=== PATIENT | male | born 1955 | race Caucasian/White ===

== ENCOUNTER 2020-01-16 06:20 | Day surgery (SDC) | payer OTHER ==
[2020-01-16] MEDS ORDERED: NA CHLORIDE 0.9% 1,000 ML ONE (06:56)
[2020-01-16] MEDS ORDERED: PHENYLEPHRINE 2.5% OPTH 2 ML ONE (07:00)
[2020-01-16] MEDS ORDERED: KETOROLAC OPTHALMIC 5 ML BOT ONE (07:00)
[2020-01-16] MEDS ORDERED: CYCLOPENTOLATE 2% OPTH 2 ML ONE (07:00)
[2020-01-16] MEDS ORDERED: TROPICAMIDE 1% OPTH 3 ML BOT ONE (07:00)
[2020-01-16] MEDS ORDERED: MOXIFLOXACIN HCL 0.5% 3ML OPTH OPTH ONE (07:01)
[2020-01-16] MEDS ORDERED: PHENYLEPHRINE 2.5% OPTH 2 ML OPTH ONE (07:07)
[2020-01-16] MEDS ORDERED: CYCLOPENTOLATE 2% OPTH 2 ML OPTH ONE (07:07)
[2020-01-16] MEDS ORDERED: TROPICAMIDE 1% OPTH 3 ML BOT OPTH ONE (07:07)
[2020-01-16] MEDS ORDERED: propofoL 200 MG/20 ML VIAL IV ONE (07:09)
[2020-01-16] MEDS ORDERED: FENTANYL CITR 100 MCG/2 ML ONE (07:09)
[2020-01-16] MEDS ORDERED: MIDAZOLAM HCL 2 MG/2 ML INJ ONE (07:09)
[2020-01-16] MEDS ORDERED: LIDOCAINE 2% MPF 5 ML VIAL ONE (07:09)
[2020-01-16] MEDS ORDERED: ONDANSETRON 4 MG/2 ML VIAL ONE (07:11)
[2020-01-16] MEDS ORDERED: DUOVISC 1 KIT OPTH ONE ×2 (07:12→08:55)
[2020-01-16] MEDS ORDERED: EPINEPHRINE/PF 1 MG/ML AMP ONE (07:22)
[2020-01-16] MEDS ORDERED: BALANCED SALT IRRIG PLAIN 500 ML BTL IRR ONE (07:22)
[2020-01-16] MEDS ORDERED: TOBRADEX 0.3-0.1% OPTH OINTMENT ONE (07:22)
[2020-01-16] MEDS ORDERED: BSS OPTHALMIC SOL 15 ML BOT OPTH ONE (07:23)
[2020-01-16] MEDS ORDERED: POVIDONE-IODINE 5% EYE DROPS ONE (07:23)
[2020-01-16] MEDS ORDERED: GLYCOPYRROLATE 0.2 MG/ML SYR ONE ×2 (08:23→08:24)
[2020-01-16] MEDS ORDERED: TRYPAN BLUE 0.5 ML SYR OPTH ONE (08:23)
[2020-01-16] MEDS ORDERED: HYDRALAZINE HCL 20 MG/ML VIAL ONE (08:23)
[2020-01-16 09:21] VITALS: TEMP 97.2
[2020-01-16 09:41] VITALS: BP 155/72; O2SAT 98
--- NOTE | 2020-01-16 09:48 | OP ---
Date of Procedure: 01/16/2020 Surgeon: Sagar Tyler MD Pharmacoepidemiologist: None. Preoperative Diagnosis: Visually significant cataract, right eye (white). Postoperative Diagnosis: Visually significant cataract, right eye (white). Procedure Performed: Complex cataract extraction, right eye, using trypan blue with subsequent impla ntation of intraocular lens. Description Of Procedure: After being properly identified in the preoperative holding area, the jim ent was taken back to the operating room where a time-out was performed. The patient was then preppe d and draped in the normal sterile fashion. Examination of the eye underneath the operating microsco pe revealed excellent dilation with salt white cataract with no red reflex present. The decision to use trypan blue was thereafter made and the initial paracentesis entry was made at 12 o'clock, follow ed by the instillation of trypan blue, which was held in place for approximately 30 seconds and then irrigated out with intra-ocular BSS. The anterior chamber was then filled with Viscoat and the main phaco incision made temporally using a keratome. A capsulorrhexis was initiated using a cystotome an d completed using Utrata forceps. The lens was thereafter removed in a standard divide and conquer t echnique. Once all 4 quadrants had been removed, a bimanual irrigation aspiration handpiece was used in order to remove the small amount of cortical material that remained. Then, the capsular bag was polished. The capsular bag was thereafter filled with Provisc and an Lamont model SN60WF intraocular lens power 20.0 diopter, serial #[id number] was implanted into the capsular bag. The irrigation asp iration handpieces were then used to remove the remaining viscoelastic material and oriental in so th at the haptics laid at the 3 and 9 o'clock positions. Because of this patient's mental status and fr agile X, the decision to place a prophylactic 10-0 nylon suture through the main phaco incision wound was made and this was placed with the knot buried. The eye was then pressurized to normal physiolog ic pressure and the lid speculum removed and the procedure concluded. The patient tolerated the proc edure well. He was under general anesthesia the entire time. The patient was pressure-patched over TobraDex ointment and taken to postoperative holding in stable condition. The patient is to follow u p with myself Dr. Sagar Tyler, at the [facility] tomorrow morning. Again, there wer e no complications. Estimated Blood Loss: Less than 1 mL. Anesthesia: General anesthesia. Drains And Implants: As above. LORI/PRASHANT Voice ID: [id number] Report ID: [id number]
== END 2020-01-16 09:43 | disposition home health service (06) ==
LOC: OR 06:20
PROVIDERS: ATTEND Ophthalmology
PROC: 08RJ3JZ Replacement of Right Lens with Synthetic Substitute, Percutaneous Approach (ICD-10-PCS; principal; 2020-01-16 07:30)
DX: H26.9 Unspecified cataract (principal); Q99.2 Fragile X chromosome; Z20.828 Contact with and (suspected) exposure to other viral communicable diseases
CPT/HCPCS: 82947 ×2; 66982; U0002; J0360; J2704; J0171; J2250; J3010; J7030; J2405